=== PATIENT | female | born 1985 | race African-American/Black ===

== ENCOUNTER 2016-08-11 12:44 | Emergency (ER) | payer OTHER ==
[~2016-08-11] VITALS: Ht 177.8 cm; Wt 93.0 kg
[2016-08-11 15:29] LABS: UA SPECIFIC GRAVITY <=1.005 (1.005-1.035); microscopic required? YES; urine erythrocyte TRACE (NEGATIVE)
[2016-08-11 16:46] VITALS: BP 130/84
== END 2016-08-11 16:46 | disposition home or self-care (01) ==
LOC: ED 12:44
PROVIDERS: Emergency Medicine
DX: N39.0 Urinary tract infection, site not specified (principal)